=== PATIENT | male | born 1950 | race African-American/Black ===

== ENCOUNTER 2018-04-29 08:16 | Day surgery (SDC) | payer OTHER ==
[~2018-04-29 08:16] MED LIST: BALANCED SALT IRRIG PLAIN 500 ML BTL IRR ONE; DUOVISC 1 KIT OPTH ONE; EPINEPHRINE/PF 1 MG/ML AMP ONE; MOXIFLOXACIN HCL 10 DROPS/ML **OR USE OPTH ONE; NS 0.9% VIAL 10 ML ONE
[2018-04-29] MEDS ORDERED: NA CHLORIDE 0.9% 500 ML ONE (09:01)
[2018-04-29] MEDS: PHENYLEPHRINE 10% OPTH 5ML ONE ×3 (09:19→09:29)
[2018-04-29] MEDS: CYCLOPENTOLATE 1% OPTH 2 ML ONE ×3 (09:19→09:29)
[2018-04-29] MEDS: TETRACAINE HCL 0.5% 2ML OPTH ONE ×2 (09:34→10:32)
[2018-04-29] MEDS: LIDOCAINE 2% MPF 5 ML VIAL ONE ×2 (09:35→10:32)
[2018-04-29] MEDS: BUPIVACAINE 0.25% PF 10 ML VIAL ONE ×2 (09:35→10:32)
[2018-04-29] MEDS ORDERED: PROPOFOL 200 MG/20 ML VIAL IV ONE ×2 (10:09→10:28)
[2018-04-29] MEDS ORDERED: LIDOCAINE 1% MPF 2 ML AMPULE ONE (10:28)
[2018-04-29] MEDS ORDERED: LIDOCAINE 1% MPF 5 ML VIAL ONE (10:29)
--- NOTE | 2018-04-29 11:08 | P.BOP ---
Preoperative diagnosis: Nuclear sclerotic and posterior subcapsular cataract OS Postoperative diagnosis: Same Primary procedure: Phacoemulsification with IOL OS Estimated blood loss: None Anesthesia: Local (Subtenon's infusion with anesthesia for cataract surgery) Complications: None Implants: ZCB00 +11.5 Transferred to: Other (Day surgery) Condition: Good
--- NOTE | 2018-04-29 22:21 | OP ---
Date of Procedure: 04/29/2018 Surgeon: Laurie Alamo MD Anesthesiologist: Marilee Doe CRNA and Michael Villanueva M.D. Preoperative Diagnosis: Nuclear sclerotic cataract and posterior subcapsular cataract, OS (left eye) . Operation Performed: Phacoemulsification with intraocular lens implant, left eye. Anesthesia: Per cataract surgery. Complications: None. A 16.75 Phaco CDE Description Of Procedure: In day surgery, the patient was prepped with Betadine and draped. A conju nctival incision was made in the inferior nasal quadrant with Paulina scissors. A sub-Tenon block c onsisting of a 1:1 mixture of 2% Xylocaine and 0.25% bupivacaine was placed through the conjunctival incision with a blunt cannula. A Honan balloon was placed over the eye and the patient was transferr ed to the operating room. In the operating room, the patient was prepped and draped in the usual sterile fashion for ophthalmic surgery. A lid speculum was placed in the left eye. Two paracentesis sites were made superiorly an d inferiorly in the limbal cornea. Viscoat was placed in the anterior chamber and a crescent blade w as used to make a corneal groove and tunnel, and a keratome was used to enter the anterior chamber. Provisc was placed in the anterior chamber and a 360-degree capsulotomy was performed with a cystitom e. The lens was hydrodissected with BSS and rotated freely. The lens was removed with a stop and ch op technique. A 6.30 phaco CDE was used to remove the lens. Residual cortex was removed with the ir rigation and aspiration. Provisc was placed in the capsular bag. A ZCB00 +11.5 diopter lens was rafael suzanna in the capsular bag without complications. Irrigation and aspiration were used to remove residua l viscoelastic. The paracentesis sites were hydrated with BSS. The wound and paracentesis sites wer e inspected and found to be watertight. Vigamox 0.07 cc was placed intracamerally at the end of the procedure. The eye was irrigated with balanced salt solution. The eye was patched with a soft emory n patch and Villa metal shield. The patient was returned to day surgery in good condition. Discharge Instructions: Mr. Bolden is discharged to home in good condition and is to follow up yarely Alamo in the morning. KOBI/JOSE ALFREDO Voice ID: [id number] Report ID: [id number]
== END 2018-04-29 11:50 | disposition home or self-care (01) ==
LOC: OR 08:16
PROVIDERS: ATTEND Ophthalmology Retina Specialist
PROC: 08RK3JZ Replacement of Left Lens with Synthetic Substitute, Percutaneous Approach (ICD-10-PCS; principal; 2018-04-29 10:00)
DX: H25.12 Age-related nuclear cataract, left eye (principal); I10 Essential (primary) hypertension; E78.00 Pure hypercholesterolemia, unspecified; H25.042 Posterior subcapsular polar age-related cataract, left eye
CPT/HCPCS: 66984; J0171; J2001

== ENCOUNTER 2018-11-11 09:41 | Day surgery (SDC) | payer OTHER ==
[2018-11-11] MEDS ORDERED: EPINEPHRINE/PF 1 MG/ML AMP ONE (10:02)
[2018-11-11] MEDS ORDERED: NS 0.9% VIAL 10 ML ONE (10:02)
[2018-11-11] MEDS ORDERED: DUOVISC 1 KIT OPTH ONE (10:02)
[2018-11-11] MEDS ORDERED: BALANCED SALT IRRIG PLAIN 500 ML BTL IRR ONE (10:02)
[2018-11-11] MEDS ORDERED: MOXIFLOXACIN HCL 10 DROPS/ML **OR USE OPTH ONE (10:02)
[2018-11-11] MEDS ORDERED: NA CHLORIDE 0.9% 500 ML ONE (10:09)
[2018-11-11] MEDS ORDERED: PHENYLEPHRINE 10% OPTH 5ML ONE (10:10)
[2018-11-11] MEDS ORDERED: CYCLOPENTOLATE 1% OPTH 2 ML ONE (10:10)
[2018-11-11] MEDS ORDERED: CYCLOPENTOLATE 1% OPTH 2 ML OPTH ONE ×2 (10:13→10:20)
[2018-11-11] MEDS ORDERED: PHENYLEPHRINE 10% OPTH 5ML OPTH ONE ×2 (10:13→10:20)
[2018-11-11] MEDS: TETRACAINE HCL 0.5% 2ML OPTH ONE ×3 (10:44→12:21)
[2018-11-11] MEDS: LIDOCAINE 2% MPF 5 ML VIAL ONE ×2 (10:44→11:56)
[2018-11-11] MEDS: BUPIVACAINE 0.25% PF 10 ML VIAL ONE ×2 (10:45→11:56)
[2018-11-11] MEDS ORDERED: LIDOCAINE 1% MPF 2 ML AMPULE ONE (11:45)
[2018-11-11] MEDS ORDERED: PROPOFOL 200 MG/20 ML VIAL IV ONE (11:45)
--- NOTE | 2018-11-11 12:35 | P.BOP ---
Preoperative diagnosis: Nuclear sclerotic cataract OD Postoperative diagnosis: Same Primary procedure: Phacoemulsification with IOL OD Estimated blood loss: None Anesthesia: Local (Subtenon's infusion with anesthesia for cataract surgery) Complications: None Implants: ZCB00 +12.0 Transferred to: Other (Day surgery) Condition: Good
--- NOTE | 2018-11-11 22:41 | OP ---
Date of Procedure: 11/11/2018 Surgeon: Laurie Alamo MD Anesthesiologist: Braxton Fernandez CRNA, and Michael Villanueva M.D. Preoperative Diagnosis: Nuclear sclerotic cataract, OD (right eye). Operation Performed: Phacoemulsification with intraocular lens implant, right eye. Anesthesia: Per cataract surgery. Complications: None. Description Of Procedure: In day surgery, the patient was prepped with Betadine and draped. A conju nctival incision was made in the inferior nasal quadrant with Paulina scissors. A sub-Tenon block c onsisting of a 1:1 mixture of 2% Xylocaine and 0.25% bupivacaine was placed through the conjunctival incision with a blunt cannula. A Honan balloon was placed over the eye and the patient was transferr ed to the operating room. In the operating room the patient was prepped and draped in the usual sterile fashion for ophthalmic surgery. A lid speculum was placed in the right eye. Two paracentesis sites were made superiorly an d inferiorly in the limbal cornea. Viscoat was placed in the anterior chamber and a crescent blade w as used to make a corneal groove and tunnel, and a keratome was used to enter the anterior chamber. Provisc was placed in the anterior chamber and a 360 degree capsulotomy was performed with a cystitom e. The lens was hydrodissected with BSS and rotated freely. The lens was removed with a stop and ch op technique. A 4.86 phaco CDE was used to remove the lens. Residual cortex was removed with the ir rigation and aspiration. Provisc was placed in the capsular bag. A ZCB00 + 12.0 lens was placed in the capsular bag without complications. Irrigation and aspiration was used to remove residual viscoe lastic. The paracentesis sites were hydrated with BSS. The wound and paracentesis sites were inspec patricia and found to be watertight. Vigamox 0.07 cc was placed intracamerally at the end of the procedur e. The eye was irrigated with balanced salt solution. The eye was patched with a soft cotton patch and Villa metal shield. The patient was returned to day surgery in good condition. Comments: Discharge Instructions: Mr. Bolden is discharged to home in good condition and is to follow up yarely Alamo in the morning. NAVDEEPL/MODL Voice ID: [id number] Report ID: [id number]
== END 2018-11-11 12:53 | disposition home or self-care (01) ==
LOC: OR 09:41
PROVIDERS: ATTEND Ophthalmology Retina Specialist
PROC: 08RJ3JZ Replacement of Right Lens with Synthetic Substitute, Percutaneous Approach (ICD-10-PCS; principal; 2018-11-11 10:30)
DX: H25.11 Age-related nuclear cataract, right eye (principal); I10 Essential (primary) hypertension; G47.33 Obstructive sleep apnea (adult) (pediatric); Z83.3 Family history of diabetes mellitus; Z82.49 Family history of ischemic heart disease and other diseases of the circulatory system
CPT/HCPCS: 66984; J2704; J0171; J2001